=== PATIENT | male | born 1940 | race Caucasian/White ===

== ENCOUNTER 2020-05-13 12:54 | Emergency (ER) | payer OTHER ==
--- NOTE | 2020-05-13 13:09 | PDOC ---
History of Present Illness <Wade Broderick - Last Filed: 05/13/20 13:09> - General History Source: Patient Exam Limitations: No Limitations <Candy Pan - Last Filed: 05/13/20 13:21> - General Chief Complaint: Pain Stated Complaint: RT RIB PAIN Time Seen by Provider: 05/13/20 13:04 Past History - Medical History Anemia: Yes (BLOOD TRANSFUSION) Asthma: No Cancer: Yes (LYMPHOMA S/P CHEMO) Cardiac Disorders: No CVA: No COPD: No CHF: No Dementia: No Diabetes: No GI Disorders: No Disorders: No HTN: No Hypercholesterolemia: No Liver Disease: No Seizures: No Thyroid Disease: No - Surgical History Abdominal Surgery: No Appendectomy: No Cardiac Surgery: Yes (CABG, CAROTID ENDARARECTOMY, RIGHT) Cholecystectomy: No Lung Surgery: No Neurologic Surgery: No Orthopedic Surgery: No - Psycho-Social/Smoking History Smoking History: Former smoker Have you smoked in the past 12 months: No If you are a former smoker, when did you quit?: 2010 <BroderickWade - Last Filed: 05/13/20 13:09> <Candy Pan - Last Filed: 05/13/20 13:21> - Medical History Allergies/Adverse Reactions: Allergies Allergy/AdvReac Type Severity Reaction Status Date / Time No Known Allergies Allergy Verified 04/19/13 08:42 Home Medications: Ambulatory Orders Aspirin Coated [Ecotrin -] 81 mg PO DAILY 04/08/13 Metoprolol Succinate [Toprol XL -] 25 mg PO HS 04/08/13 Simvastatin [Zocor -] 40 mg PO HS 04/08/13 Acetaminophen W/ Codeine #3 [Tylenol # 3] 1 - 2 tab PO PRN PRN #0 tablet 04/19/13 ED Treatment Course - RADIOLOGY Radiology Studies Ordered: Category Date Time Status CHEST PA & LAT [RAD] Stat Radiology 05/13/20 13:20 Ordered <Candy Pan - Last Filed: 05/13/20 13:21>
--- NOTE | 2020-05-13 13:26 | PDOC ---
Attending Attestation - Resident Resident Name: Wade Broderick - ED Attending Attestation I have performed the following: I have examined & evaluated the patient, The case was reviewed & discussed with the resident, I agree w/resident's findings & plan - HPI HPI: 05/13/20 13:26 HPI 80-year-old male with history of hypertension hyperlipidemia, lymphoma, CAD, arthritis, lumbar disc disease status post surgery, presenting with right-sided lateral chest pain worse with movement x1 week. Denies any trauma or strenuous activity. No shortness of breath, headache, dizziness, neurologic changes. He has been using a heating pad in the area. He went to see his primary doctor, Dr. Kowalski yesterday who prescribed him naproxen and Flexeril to be taken as needed however patient has not prescribed or filled his medicines. NKA PMD: Dr Kowalski - Physicial Exam PE: 05/13/20 13:26 Physical exam General: Well appearing, awake and alert, NAD. HEENT: NCAT, PERRL, EOMI, clear conjunctiva, anicteric, moist mucus membranes, clear oropharynx, no oral lesions.. Neck: neck supple, FROM Resp: CTAB, normal and even respirations, no respiratory distress CVS: RRR, no murmurs, 2+ peripheral pulses throughout, no peripheral edema Chest: midline sternotomy scar, +right lateral chest wall tenderness, very mild. Abdomen: soft, NTND, no rebound or guarding. Back: nontender, normal inspection and ROM MSK: no edema, VIZCARRA x4, ROM intact. No clubbing or cyanosis. normal bulk and tone. Extremities: no calf tenderness Neuro: alert, oriented appropriately; no focal neurologic deficits Psych: Calm and cooperative Skin: warm and well perfused, cap refill <2 sec, normal color, +rash to the right lateral chest wall/abdomen, nontender, not raised, no warmth.
--- NOTE | 2020-05-13 13:27 | PDOC ---
History of Present Illness - General Chief Complaint: Pain Stated Complaint: RT RIB PAIN Time Seen by Provider: 05/13/20 13:04 History Source: Patient Exam Limitations: No Limitations - History of Present Illness Initial Comments: 05/13/20 13:27 HPI 80 YOM with h/o lymphoma in remission, HTN, HLD, DM, CAD, tobacco use, lumbar disc disease s/p surgery, presenting with right sided chest wall pain/back pain x 1 week, worse with movement and walking; he describes the pain as sharp and achy and "crippling." he has been using a heating pad over the area.. he went to see his primary doctor Dr Kowalski yesterday, rx'd naproxin and flexeril, which he did not fill yet. This morning he experienced severe right sided chest and back pain, took some tylenol with relief this morning. Now his pain has improved. no falls or trauma. Denies fever, chills, cough, SOB, palpitation, dizziness, weakness, N, V, D, abdominal pain, bladder and bowel problems, focal weakness/paresthesias, leg swelling/pain, rash. No new changes in medications. Allergies: None Past Medical History/PSH: as above Social history: former smoker Meds: as documented in EMR Family history: noncontributory PMD: Dr Kowalski Review of systems Constitutional: no fevers or chills. No weakness HEENT: no headache or dizziness. No congestion. No visual/hearing disturbances. CVS: +chest pain, no syncope. Resp: no sob. No cough. Gastrointestinal: no abdominal pain, nausea, vomiting, diarrhea. Genitourinary: no urinary sx, hematuria. MUSCULOSKELETAL: No joint pain and swelling. No neck or back pain. SKIN: no redness or skin changes, no discharge, +rash. No wounds. Hematologic: no easy bruising/bleeding. NEUROLOGIC: No headache, dizziness, LOC or altered mental status. No weakness, numbness or tingling. Psych: no anxiety or depression Allergic/Immunologic: no allergies All other systems reviewed and negative, or as documented in HPI. Physical exam General: Well appearing, awake and alert, NAD. HEENT: NCAT, PERRL, EOMI, clear conjunctiva, anicteric, moist mucus membranes, clear oropharynx, no oral lesions.. Neck: neck supple, FROM Resp: CTAB, normal and even respirations, no respiratory distress CVS: RRR, no murmurs, 2+ peripheral pulses throughout, no peripheral edema Chest: midline sternotomy scar, +right lateral chest wall tenderness, very mild. Abdomen: soft, NTND, no rebound or guarding. Back: +right upper back TTP, normal inspection and ROM MSK: no edema, VIZCARRA x4, ROM intact. No clubbing or cyanosis. normal bulk and tone. Extremities: no calf tenderness Neuro: alert, oriented appropriately; no focal neurologic deficits Psych: Calm and cooperative Skin: warm and well perfused, cap refill <2 sec, normal color, +rash to the right lateral chest wall/abdomen, nontender, not raised, no warmth. 05/13/20 13:27 05/13/20 13:30 05/13/20 14:12 05/13/20 14:44 05/13/20 15:31 Past History - Medical History Allergies/Adverse Reactions: Allergies Allergy/AdvReac Type Severity Reaction Status Date / Time No Known Allergies Allergy Verified 04/19/13 08:42 Home Medications: Ambulatory Orders Aspirin Coated [Ecotrin -] 81 mg PO DAILY 04/08/13 Metoprolol Succinate [Toprol XL -] 25 mg PO HS 04/08/13 Simvastatin [Zocor -] 40 mg PO HS 04/08/13 Acetaminophen W/ Codeine #3 [Tylenol # 3] 1 - 2 tab PO PRN PRN #0 tablet 04/19/13 Lidocaine 5% Patch [Lidoderm Patch -] 1 patch TP DAILY #7 patch 05/13/20 Anemia: Yes (BLOOD TRANSFUSION) Asthma: No Cancer: Yes (LYMPHOMA S/P CHEMO) Cardiac Disorders: No CVA: No COPD: No CHF: No Dementia: No Diabetes: No GI Disorders: No Disorders: No HTN: No Hypercholesterolemia: No Liver Disease: No Seizures: No Thyroid Disease: No - Surgical History Abdominal Surgery: No Appendectomy: No Cardiac Surgery: Yes (CABG, CAROTID ENDARARECTOMY, RIGHT) Cholecystectomy: No Lung Surgery: No Neurologic Surgery: No Orthopedic Surgery: No - Psycho-Social/Smoking History Smoking History: Former smoker Have you smoked in the past 12 months: No If you are a former smoker, when did you quit?: 2010 ED Treatment Course - LABORATORY CBC & Chemistry Diagram: 05/13/20 14:54 05/13/20 14:54 - RADIOLOGY Radiology Studies Ordered: Category Date Time Status CHEST PA & LAT [RAD] Stat Radiology 05/13/20 13:20 Ordered Medical Decision Making - Medical Decision Making 05/13/20 13:30 Vital Signs Temp Pulse Resp BP Pulse Ox 97.9 F 74 19 161/77 97 05/13/20 12:55 05/13/20 12:55 05/13/20 12:55 05/13/20 12:55 05/13/20 12:55 vitals reviewed wnl appears mostly msk related, no sob, no palp. pain is reproducible, worse with movement. appears more myofascial right sided chest pain, which is not typical for ACS. no exertional component. no radiation of sx. no respiratory or neuro sx, no syncope. DDx chest pain: ACS, coronary vasospasm, NSTEMI, arrhythmia, unstable angina, PE, dissection, PUD, esophageal spasm, GERD, gastritis, costochondritis, pneumonia, pleurisy, pericarditis/myocarditis. dehydration, electrolyte/metabolic derangements. Chest pain negative: No evidence of ACS, pericarditis, myocarditis, pulmonary embolism, pneumothorax, pneumonia, Zoster, or esophageal perforation. Historically not abrupt in onset, tearing or ripping, pulses symmetric, no evidence of aortic dissection. CXR (2 view): no acute abnormality: no infiltrates, bones appear intact and structures normal alignment, cardiac silhouette within normal limits. no free air under diaphragm, no pneumothorax. sternal sutures in place. similar xray to prior image. COPD changes, increased interstitial markings. analgesia here with lidoderm patch, tylenol. 05/13/20 14:45 on clinical reassessment, pt is "not satisfied with the answers" I had discussed with the patient his xray is normal this is most likely myofascial /msk strain of his lower back, as it is worse with movement pt insists "there is something wrong." he is in no pain currently did take tylenol earlier today, and received analgesia here he is ambulatory no respiratory distress due to patient's persistence, will do labs/cardiac enzymes, ekg and CTA to eval for PE/intra thoracic abnormalities as d dimer testing is limited here at this facility, given he had a prior malignancy history Labs and lytes are wnl, neg trop, reassuring. doubt cardiac/ACS 05/13/20 15:50 while getting up from CT scan, he started having right sided chest pain, worse with movement, very musculoskeletal and reproducible. 05/13/20 16:47 CTA neg for PE. reticular changes/fibrotic changes likely related to emphysema. no other acute pathology noted explained extensively to the patient at bedside this is likely msk related pain/myofascial pain analgesia regimen discussed, told to fill his PMD medications as needed for pain control will add on lidoderm patch and prn tylenol as needed DC stable condition, return precautions provided, PCP followup. rest and supportive care. avoid heating pads. 05/13/20 16:49 Discharge - Discharge Information Problems reviewed: Yes Clinical Impression/Diagnosis: Right-sided chest wall pain Condition: Stable Disposition: HOME - Admission No - Additional Discharge Information Prescriptions: Lidocaine 5% Patch [Lidoderm Patch -] 1 patch TP DAILY #7 patch - Follow up/Referral Referrals: Leonardo Kowalksi MD [Staff Physician] - - Patient Discharge Instructions Patient Printed Discharge Instructions: DI for Chest Pain Additional Instructions: YOUR BLOOD WORK AND CT SCANS WERE UNREMARKABLE. YOUR BLOOD WORK AND ENZYMES ARE NORMAL LIMITS. YOUR CT SCAN DID NOT SHOW A BLOOD CLOT OR MASS OR THORACIC ABNORMALITIES. 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 You most likely have musculoskeletal strain of your chest wall Avoid heavy lifting or strenuous activity to minimize further injury This should heal over the next 3-5 days. RICE rest ice elevate the affected area Rest, Ice (20 minutes at a time, 3 times a day), Compression (TREVOR wrap or splint), Elevation (above the heart). Apply ice to the area for 10 minutes every 2 hours for the first 2 days after the injury to reduce swelling. continue with range of motion exercises, as this will facilitate the healing process; avoid being bed bound and immobile. If you have any worsening of symptoms, including severe pain/swelling/redness/numbness/changes in sensation/weakness/paralysis or any other concerns please return to the Emergency Department immediately. You were given a copy of the results from any tests performed today in the Emergency Department which have results available. Show these to your doctor(s). Some of the tests we sent may not have results yet so please call or have your doctor call the Emergency Department to follow up on all results. Please continue taking your home medications as directed. Do not use alcohol when taking any med ication (especially antibiotics, tylenol or other pain medication) unless you check with the doctor or pharmacist. -flexeril is a muscle relaxant, take three times a day as needed may cause sleepiness, do not drive or operate machinery or take with alcohol. -topical lidoderm patch to the area affected, 12 hours on and 12 hours off.. -May take naproxen twice a day and/or tylenol 650 to 975 mg every 6 hours as needed for mild to moderate pain, available over the counter. This does not require narcotics, as it will precipitate injuries and falls. (YOUR DOCTOR PRESCRIBED THE NAPROXEN AND FLEXERIL - YOU HAVE TO TAKE THE SCRIPT AND TAKE IT TO THE PHARMACY TO FILL IT) Please follow up with your primary doctor(s) within the next 1 week, but seek medical care sooner if your symptoms persist or worsen. Please call as soon as possible for an appointment. If you cannot follow up with your doctor please return to the Emergency Department for any urgent issues. Follow up with your primary care physician in 1 week if symptoms persist, or with orthopedics specialists if needed, referrals have been provided. - Post Discharge Activity
[2020-05-13 13:28] VITALS: BP 161/77; PULSE 74; TEMP 97.9; BMI 24.4
[2020-05-13] MEDS ORDERED: LIDOCAINE 5% TOPICAL PATCH TP ONE (14:11)
[2020-05-13] MEDS ORDERED: ACETAMINOPHEN 325 MG TABLET (FP) PO ONE (14:11)
[2020-05-13] MEDS ORDERED: ACETAMINOPHEN 325 MG TABLET (FP) ONE (14:27)
[2020-05-13] MEDS ORDERED: LIDOCAINE 5% TOPICAL PATCH ONE (14:27)
[2020-05-13 15:07] LABS: WHITE BLOOD COUNT 8.5 K/mm3 (4.0-10.8)
[2020-05-13 15:12] LABS: BASO % 0.4 % (0-2.0); EOS % 2.8 % (0-4.5); HEMATOCRIT 37.4 % (35.4-49); HEMOGLOBIN 12.3 GM/dl (11.7-16.9); LYMPH % 16.3 % (8-40); MCH 29.9 pg (25.7-33.7); MEAN CELL VOLUME 90.8 fl (80-96); MEAN PLT VOLUME 8.7 fl (7.5-11.1); MONO % 7.9 % (3.8-10.2); NEUT % 72.6 % (42.8-82.8); PLATELET COUNT 173 K/MM3 (134-434); RBC 4.12 M/mm3 (4.00-5.60); RDW 15.4 % (11.9-15.9)
[2020-05-13 15:26] LABS: BILIRUBIN,TOTAL 0.7 mg/dl (0.2-1); CALCIUM 8.9 mg/dl (8.5-10); TOT PROT 7.7 g/dl (6.4-8.2)
== END 2020-05-13 17:31 | disposition home or self-care (01) ==
LOC: FER 12:54
DX: R07.81 Pleurodynia (principal)
CPT/HCPCS: 36415; 71046-TC-FY; 71275-TC; 80053; 82550; 84484; 85025; 99285-25; Q9967

== ENCOUNTER 2020-07-23 12:35 | Emergency (ER) | payer OTHER ==
[2020-07-23 12:43] VITALS: BP 124/70; PULSE 86; TEMP 97.8; BMI 26.6
[2020-07-23 14:51] LABS: BASO % 0.5 % (0-2.0); EOS % 3.7 % (0-4.5); HEMATOCRIT 37.7 % (35.4-49); HEMOGLOBIN 12.6 GM/dL (11.7-16.9); LYMPH % 23.6 % (8-40); MCH 31.5 pg (25.7-33.7); MCHC 33.5 g/dl (32.0-35.9); MEAN CELL VOLUME 94.2 fl (80-96); MEAN PLT VOLUME 8.7 fl (7.5-11.1); MONO % 9.7 % (3.8-10.2); NEUT % 62.5 % (42.8-82.8); PLATELET COUNT 181 K/MM3 (134-434); RDW 15.6 % (11.9-15.9); WHITE BLOOD COUNT 7.3 K/mm3 (4.0-10.0)
[2020-07-23 14:54] LABS: PROTHROMBIN TIME (PATIENT) 12.1 SEC (9.7-13.0)
[2020-07-23 14:56] LABS: ACTIVATED PTT 27.9 SECONDS (25.2-36.5)
[2020-07-23 15:01] LABS: CHLORIDE 98 mmol/L (98-107); POTASSIUM 5.5 mmol/L (3.5-5.1)
[2020-07-23 15:03] LABS: ALBUMIN 3.7 g/dl (3.4-5.0); CALCIUM 9.2 mg/dL (8.5-10.1)
[2020-07-23 15:04] LABS: CO2 28 mmol/L (21-32); GLUCOSE,RANDOM 85 mg/dL (74-106)
[2020-07-23 15:07] LABS: CREATININE 1.4 mg/dL (0.55-1.3); SGOT/AST 62 U/L (15-37); SGPT/ALT 20 U/L (13-61)
[2020-07-23 15:08] LABS: TOT PROT 8.2 g/dl (6.4-8.2)
[2020-07-23 15:10] LABS: ALK PHOS 80 U/L (45-117)
[2020-07-23 15:24] LABS: ANION GAP 8 MMOL/L (8-16); SODIUM 135 mmol/L (136-145)
[2020-07-23 15:42] LABS: URINE APPEARANCE CLEAR; URINE BILIRUBIN NEGATIVE (NEGATIVE); URINE COLOR YELLOW; URINE GLUCOSE (UA) NEGATIVE (NEGATIVE); URINE KETONE NEGATIVE (NEGATIVE); URINE LEUK ESTERASE NEGATIVE (NEGATIVE); URINE NITRITE NEGATIVE (NEGATIVE); URINE PROTEIN NEGATIVE (NEGATIVE); URINE UROBILINOGEN 0.2 mg/dL (0.2-1.0)
== END 2020-07-23 16:16 | disposition home or self-care (01) ==
LOC: JER 12:35
DX: M54.9 Dorsalgia, unspecified (principal); R60.0 Localized edema
CPT/HCPCS: 36415; 71045-TC-FY; 80053; 81003; 83880; 84443; 84484; 85025; 85610; 85730; 87086; 93005; 93010; 93970-TC; 99284-25; C9803; U0003